=== PATIENT | male | born 1975 | race Caucasian/White ===

== ENCOUNTER 2016-11-11 10:43 | Emergency (ER) | payer OTHER ==
[~2016-11-11] VITALS: Ht 165.1 cm; Wt 76.5 kg
[~2016-11-11 10:43] MED LIST: DOCU100C; MECL25TA2 PO; MULTI PO; NAPR1TAB PO; OCEAN NASAL
[2016-11-12 02:42] VITALS: Ht 165.1 cm; Wt 76.5 kg
--- NOTE | 2016-11-12 03:41 | RADRPT ---
PROCEDURE: Noncontrast CT facial bones. CLINICAL INDICATION: Mastoid tenderness. TECHNIQUE: Noncontrast CT of the facial bones was obtained. Coronal and sagittal re-formations were provided. The administered radiation dose was CTDI vol = 30 mGy, DLP = 642 mGy-cm. COMPARISON: No pertinent prior examinations were submitted for comparison. FINDINGS: No acute facial bone fractures are seen. The globes are intact. The bony orbits are without worrisome osseous lesion. The extraocular muscl es and optic nerve complexes are normal in caliber. No intraorbital hematoma or inflammatory change s are present. The paranasal sinuses and mastoid air cells are without fluid. No erosive changes are seen within th e mastoid processes. The middle ear cavities are without fluid. The ossicles are intact and normal in configuration. The inner ear structures are unremarkable. IMPRESSION: No acute fracture. No evidence of mastoiditis. RPTAT: HIKT .Pepito Bermeo MD, MD Date Time Electronically viewed and signed by .Pepito Bermeo MD, on 11/12/2016 03:41 .T/
[2016-11-12] MEDS ORDERED: AMOX1TAB10 PO (03:54)
[2016-11-12] MEDS ORDERED: FLUT9.9S NASAL (03:54)
[2016-11-12] MEDS ORDERED: PSEU120T51 PO (03:55)
--- NOTE | 2016-11-15 09:32 | ERD ---
ER Documentation Chief Complaint Date/Time DATE: 11/15/16 TIME: 09:25 Chief Complaint facial pain, sinus headache x 2 years HPI This is a 41-year-old male presents to the ER complaining of sinus pressure and facial pain. Patient states that a year ago he was swimming in the ocean and ever since then he is noticed that he's had problems. Patient states that he noticed that a month later he developed an odd cold, which took a long time to resolve. 46 months ago he developed sinus pressure, which never resolved. Patient went to his primary care doctor and CT scans were done and patient was given a trial of an unknown antibiotic which worked however patient states that symptoms quickly returned once he finished antibiotics. Patient states that over the last week he began to develop bilateral ear pain. Patient denies any fevers or chills. He denies any runny nose or nasal discharge. He denies any chest pain or shortness of breath. He denies any cough or cold symptoms. He denies any trauma to the head. Patient denies any hearing loss or tinnitus. Patient denies any headache, loss of consciousness, confusion. Denies any nausea vomiting or diarrhea. ROS 12 point review of systems was done, all negative except per HPI. Medications Home Meds Active Scripts Pseudoephedrine Hcl (Sudafed 12 Hour) 120 Mg Tablet.sa, 120 MG PO BID for 7 Days Prov:ARISTIDES SAUCEDO 11/12/16 Fluticasone Propionate (Flonase Allergy Relief) 9.9 Ml Verner.susp, 1 SPRAY NASAL BID, #1 BOTTLE TO EACH NOSTRIL Prov:ARISTIDES SAUCEDO 11/12/16 Amoxicillin/Potassium Clav (Amox-Clav 875-125 mg Tablet) 875-125 mg Tab, 1 TAB PO BID for 7 Days, #14 TAB Prov:ARISTIDES SAUCEDO 11/12/16 Naproxen Sodium/P-Ephed Hcl (Aleve Cold & Sinus Caplet) 1 Tab.sr .12 H Tab.sr.12h, 1 TAB.SR PO Q12H for 30 Days, TAB Prov:ZARAGOZA,FLAKITA V. FISCAL SPECIALIST 10/18/15 Saline* (Deep Sea* Nasal) 45 Ml Verner, 1 SPRAY NASAL Q4H Y for Nasal congestion , #30 SPRAY Prov:ZARAGOZA,FLAKITA V. FISCAL SPECIALIST 10/18/15 Meclizine Hcl* (Antivert*) 25 Mg Tablet, 25 MG PO Q6H Y for NAUSEA AND/OR VOMITING, #20 TAB Prov:PATRICIO PERES PA-C 01/03/15 Reported Medications Multivitamins* (Theragran*) 1 Tab Tab, 1 TAB PO DAILY, TAB 10/17/15 Docusate Sodium (Col-Rite) 100 Mg Capsule, DAILY 05/08/12 Allergies Allergies: Coded Allergies: No Known Allergy (Unverified , 05/08/12) PMhx/Soc History of Surgery: No Anesthesia Reaction: No Hx Neurological Disorder: No Hx Respiratory Disorders: No Hx Cardiac Disorders: No Hx Psychiatric Problems: No Hx Miscellaneous Medical Probl: Yes (dm) Hx Alcohol Use: No Hx Substance Use: No Hx Tobacco Use: No Smoking Status: Never smoker Physical Exam Vitals Vital Signs Date Time Temp Pulse Resp B/P Pulse Ox O2 Delivery O2 Flow Rate FiO2 11/12/16 02:42 97.5 94 20 148/82 100 Physical Exam GENERAL: The patient is well developed and appropriate for usual state of health , in no apparent distress. HEENT: Atraumatic. Conjunctivae are pink. Pupils equal, round, and reactive to light. Extraocular muscles are grossly intact. Bilateral tympanic membranes are clear with no evidence of erythema, effusion or dulling of the light reflex. The oropharynx is clear with no erythema or exudates. Patient did have mild mastoid tenderness. Mild frontal and maxillary sinus tenderness. CHEST: Clear to auscultation bilaterally. There are no rales, wheezes or rhonchi. HEART: Regular rate and rhythm. No murmurs, clicks, rubs or gallops. NEURO: Alert and oriented. Cranial nerves II through XII are intact. SKIN: There is no apparent rash or petechia. The skin is warm and dry. Procedures/MDM This is a 41-year-old male presents to the ER with sinus pressure and ear pain that has been going on for 6 months now. Differential Diagnosis includes but is not limited to; allergic rhinitis, sinusitis, deep cavernous thrombosis, mastoiditis. Patient's physical examination is benign he did have some tenderness over his sinuses to be treated for possible sinusitis. He was also given Flonase for any potential allergic component. Suspicion for infectious etiology is low patient is afebrile and well-appearing. I doubt deep Venous thrombosis. Patient is to follow-up with his primary care doctor within 1-2 days return to ER sooner if symptoms worsen. My medical decision making was shared with the patient he understands and agrees with plan. Departure Diagnosis: Primary Impression: Sinusitis Condition: Stable Patient Instructions: Sinusitis, Abx Tx Additional Instructions: Llame al doctor MAANA y alverto niranjan LUCRETIA PARA DENTRO DE 1-2 KAUR.Dgale a la secretaria que nosotros le instruimos hacer esta lucretia.Avise o llame si burton condicin se empeora antes de la lucretia. Regresa aqui si peor o no mejor. ARISTIDES SAUCEDO Nov 15, 2016 09:32
== END 2016-11-12 04:07 | disposition home or self-care (01) ==
LOC: E/R 10:43 → FTE 11-12 04:07
DX: J32.9 Chronic sinusitis, unspecified (principal); E11.9 Type 2 diabetes mellitus without complications
CPT/HCPCS: 70486

== ENCOUNTER 2017-06-01 19:57 | Emergency (ER) | END 2017-06-02 01:00 | disposition home or self-care (01) ==

== ENCOUNTER 2017-08-09 22:32 | Observation (INO) | END 2017-08-10 14:08 | disposition home or self-care (01) ==